=== PATIENT | male | born 2000 | race African-American/Black ===

== ENCOUNTER 2020-02-21 15:02 | Emergency (ER) | payer OTHER ==
[2020-02-21] MEDS ORDERED: Acetaminophen/oxyCODONE 325-5 MG Tab PO ONE (15:03)
[2020-02-21] MEDS ORDERED: Clindamycin HCl 150 MG Cap PO ONE (15:03)
[2020-02-21] MEDS ORDERED: Lactated Ringers 1,000 ML IV ONE ×2 (15:04→16:47)
[2020-02-21] MEDS ORDERED: HYDROmorphone 2 MG/ML SDV IVPUSH ONE (15:10)
[2020-02-21] MEDS ORDERED: Clindamycin Phosphate 900 MG in Sodium Chloride 0.9% 100 ML IV ONE (15:12)
[2020-02-21] MEDS ORDERED: Acetaminophen Susp 160 MG/5 ML 120 ML Bottle PO ONE (15:18)
--- NOTE | 2020-02-21 15:23 | EDM.PDOC ---
ED HPI GENERAL MEDICAL PROBLEM - General Chief Complaint: ENT Problem Stated Complaint: EAR AND THROAT PAIN Time Seen by Provider: 02/21/20 15:05 Source of Information: Reports: Patient, Family, Provider History Limitations: Reports: No Limitations - History of Present Illness INITIAL COMMENTS - FREE TEXT/NARRATIVE: 19 yo male was referred to the ER from the walk-in clinic for R sided sore throat and fever. His sx's began last night and have progressed rapidly. Referral to ER for suspicion of peritonsillar abscess. Fever is of newer onset, just starting today. Here with mother. Onset: Gradual Onset Date: 02/20/20 Duration: Hour(s):, Getting Worse Location: Reports: Neck (R sided throat pain) Quality: Reports: Sharp Severity: Severe Improves with: Reports: None Worsens with: Reports: Other (time) Context: Reports: Other (See HPI) Associated Symptoms: Reports: Fever/Chills Treatments VENEER SORTER: Reports: Other (see below) (none) - Related Data Allergies Allergy/AdvReac Type Severity Reaction Status Date / Time No Known Allergies Allergy Verified 02/21/20 16:11 Home Meds: Home Meds Acetaminophen/oxyCODONE [Percocet 325-5 MG] 1 - 2 each PO QID PRN #14 tab 02/21/20 [Rx] Clindamycin HCl 300 mg PO TID #20 capsule 02/21/20 [Rx] ED ROS ENT - Review of Systems Review Of Systems: See Below Constitutional: Reports: No Symptoms HEENT: Reports: Throat Pain, Throat Swelling Respiratory: Reports: No Symptoms Cardiovascular: Reports: No Symptoms GI/Abdominal: Reports: No Symptoms Skin: Reports: No Symptoms ED EXAM, ENT - Physical Exam Exam: See Below Exam Limited By: No Limitations General Appearance: Alert, WD/WN, No Apparent Distress Eye Exam: Bilateral Eye: Normal Inspection Ears: Normal External Exam, Normal Canal, Hearing Grossly Normal Nose: Normal Inspection, No Blood Mouth/Throat: Muffled Voice, Peritonsillar Mass (on right), Trismus, Uvular Deviation Head: Atraumatic, Normocephalic Respiratory/Chest: No Respiratory Distress, Lungs Clear, Normal Breath Sounds, No Accessory Muscle Use Cardiovascular: Regular Rate, Rhythm, No Edema Neurological: Alert, Oriented, CN II-XII Intact, Normal Cognition, No Motor/Sensory Deficits Psychiatric: Normal Affect, Normal Mood Skin: Warm, Dry, Intact, Normal Color, No Rash Course - Vital Signs Text/Narrative:: Dr. Chen called @ 1635h, will come to ER to attempt drainage of abscess. Last Recorded V/S: Last Vital Signs Temp 38.3 C H 02/21/20 15:52 Pulse 89 02/21/20 15:52 Resp 18 02/21/20 15:52 BP 147/91 H 02/21/20 15:52 Pulse Ox 100 02/21/20 15:52 - Orders/Labs/Meds Orders: Active Orders 24 hr Category Date Time Status Soft Tissue Neck wo Cont [CT] Stat Exams 02/21/20 15:13 Ordered CULTURE STREP A CONFIRMATION [] Stat Lab 02/21/20 15:35 Results STREP SCRN A RAPID W CULT CONF [] Stat Lab 02/21/20 15:35 Results Meds: Medications Discontinued Medications Generic Name Dose Route Start Last Admin Trade Name Freq PRN Reason Stop Dose Admin Acetaminophen 960 mg 02/21/20 15:18 02/21/20 16:17 Tylenol Solution 160mg/5ml PO 02/21/20 15:19 960 mg ONETIME ONE Administration Acetaminophen Confirm 02/21/20 16:14 02/21/20 16:18 Tylenol Solution Administered 02/21/20 16:15 Not Given Dose 960 mg .ROUTE .STK-MED ONE Hydromorphone HCl 1 mg 02/21/20 15:10 02/21/20 15:44 Dilaudid IVPUSH 02/21/20 15:11 1 mg ONETIME ONE Administration Lactated Ringer's 1,000 mls @ 1,000 mls/hr 02/21/20 15:04 02/21/20 15:30 Ringers, Lactated IV 02/21/20 16:03 1,000 mls/hr BOLUS ONE Administration Clindamycin Phosphate 900 mg/ 106 mls @ 100 mls/hr 02/21/20 15:12 02/21/20 16:18 Sodium Chloride IV 02/21/20 16:15 Not Given ONETIME ONE Clindamycin/Sodium Chloride 900 mg in 75 mls @ 100 mls/hr 02/21/20 16:00 02/21/20 16:14 Cleocin In Ns IV 02/21/20 16:44 100 mls/hr ONETIME ONE Administration Lactated Ringer's 1,000 mls @ 1,000 mls/hr 02/21/20 16:47 02/21/20 17:00 Ringers, Lactated IV 02/21/20 17:46 1,000 mls/hr BOLUS ONE Administration Iopamidol 75 ml 02/21/20 15:57 02/21/20 16:16 Isovue-370 (76%) IV 02/21/20 15:58 75 ml . DIRECTED ONE Administration Lidocaine HCl 30 ml 02/21/20 17:05 Xylocaine 2% Jelly MUCMEM 02/21/20 17:06 NOW STA Lidocaine HCl Confirm 02/21/20 17:15 Xylocaine 2% Viscous Administered 02/21/20 17:16 Dose 15 ml .ROUTE .[facility]iology Interpretation Free Text/Narrative:: CT soft tissue neck-R peritonsillar abscess CT Results Date: 02/21/20 Departure - Departure Time of Disposition: 18:00 Disposition: Home, Self-Care 01 Condition: Fair Clinical Impression: Peritonsillar abscess - Discharge Information *PRESCRIPTION DRUG MONITORING PROGRAM REVIEWED*: No *COPY OF PRESCRIPTION DRUG MONITORING REPORT IN PATIENT NABEEL: No Prescriptions: Clindamycin HCl 300 mg PO TID #20 capsule Acetaminophen/oxyCODONE [Percocet 325-5 MG] 1 - 2 each PO QID PRN #14 tab PRN Reason: Pain Instructions: Peritonsillar Abscess, [id number] Referrals: PCP,None [Primary Care Provider] - Forms: ED Department Discharge Additional Instructions: Drink ample fluids to stay hydrated. Take clindamycin every 8 hrs. Use Percocet 1-2 every 6 hrs as needed for pain relief. You may substitute acetaminophen for the Percocet if your pain is not severe. Rest. Eat a soft diet until you are improved. Follow up with Dr. Chen on Saturday at his [facility] office, [place] on Saturday to get a time([phone]). Return as needed. Sepsis Event Note (ED) - Focused Exam Vital Signs: Vital Signs Temp Pulse Resp BP Pulse Ox 02/21/20 15:52 38.3 C H 89 18 147/91 H 100 - My Orders Last 24 Hours: My Active Orders 02/21/20 15:13 Soft Tissue Neck wo Cont [CT] Stat 02/21/20 15:35 CULTURE STREP A CONFIRMATION [RM] Stat STREP SCRN A RAPID W CULT CONF [RM] Stat - Assessment/Plan Last 24 Hours: My Active Orders 02/21/20 15:13 Soft Tissue Neck wo Cont [CT] Stat 02/21/20 15:35 CULTURE STREP A CONFIRMATION [RM] Stat STREP SCRN A RAPID W CULT CONF [RM] Stat
[2020-02-21] MEDS ORDERED: Iopamidol 755 Mg/ML 100 ML Bottle IV ONE (15:57)
[2020-02-21] MEDS ORDERED: CLINDAMYCIN IV ONE (16:00)
[2020-02-21] MEDS ORDERED: SOD CHLOR IV ONE (16:00)
[2020-02-21] MEDS ORDERED: Acetaminophen Soln 160 MG/5 ML UD Cup ONE (16:14)
[2020-02-21] MEDS ORDERED: Lidocaine 2% Jelly 30 ML Tube MUCMEM STA (17:05)
[2020-02-21] MEDS ORDERED: Lidocaine 2% Viscous Solution 15 ML Cup PO ONE (17:15)
[2020-02-21] MEDS ORDERED: Lidocaine 2% Viscous Solution 15 ML Cup ONE (17:15)
[2020-02-21] MEDS ORDERED: Clindamycin HCl 150 MG Cap ONE (18:04)
--- NOTE | 2020-02-21 21:25 | ER ---
DATE OF CONSULTATION: 02/21/2020 HISTORY: This is a 19-year-old male presented to the walk-in clinic today with severe right-sided throat pain. He had noticed gradual onset of a sore throat over the last 2-3 days, but noted was markedly worse today. He also noted that last night he had some difficulty breathing because of the swelling in his throat. He has also had some difficulty swallowing. On evaluation, the patient was noted to have marked swelling in the right paratonsillar region and he was sent to the emergency room for further evaluation where a CT scan of the throat was obtained. The radiologist's report is not available at this time. However, there is noted on the CT swelling in the peritonsillar region along with some decreased density, appearance of the tissue near the tonsil suggestive of a possible peritonsillar abscess. The patient states that he has not had any previous episodes of severe tonsillitis or a previous episodes of such as this. He generally is healthy. He does not take any routine prescription medications. Has not had any previous surgery. PHYSICAL EXAMINATION: Shows a pleasant young adult male. His voice is somewhat muffled. He is in no respiratory distress. There is noted tenderness to palpation of the right side of the neck and examination of the oral cavity reveals marked swelling in the right peritonsillar region with some displacement of the uvula to the patient's left. /[id number] ISIDRO/KADEN
--- NOTE | 2020-02-21 21:31 | ER ---
DATE OF PROCEDURE: 02/21/2020 With the history and findings, I recommended incision and drainage of the right peritonsillar area because of the possibility of an abscess in this region and the patient agreed to this. The patient is allowed to gargle viscous xylocaine and then under direct visualization, the right paratonsillar mucosa is infiltrated with xylocaine with epinephrine. Once good analgesia of this area had been achieved, again under direct visualization a linear vertical incision was made along the back edge of the tonsil and blunt dissection was carried out into the right peritonsillar space. A small amount of thickened fluid was drained from the area, although a large abscess cavity was not identified. The incision in the mucosa was left open, and the patient and his mother who accompanies him were carefully advised that there may be some drainage that occurs over the next day or two. The patient has been given IV hydration as well as IV antibiotics here and is prescribed some oral antibiotics as well as pain medication to take at home. He is strongly encouraged to maintain good hydration. He will likely need to stay on a soft diet at this point, but anticipate that the swelling and pain will improve in a short period of time for him. I have asked the patient that he return to see me in the outpatient clinic in 3 days. Our instructions were carefully reviewed with the patient and his mother. Questions are answered to their apparent satisfaction. /[id number] ISIDRO/KADEN
== END 2020-02-21 18:22 | disposition home or self-care (01) ==
LOC: FB.ED 15:02
DX: J02.9 Acute pharyngitis, unspecified (principal)
CPT/HCPCS: 42700; 70490; 87081; 87880; 96361; 96365; 96375; 99284; A9270; J1170; J3490; J7120; Q9967